=== PATIENT | male | born 1995 | race Caucasian/White ===

== ENCOUNTER 2020-11-15 17:46 | Emergency (ER) | payer BC, SELFPAY ==
--- NOTE | 2020-11-15 17:50 | ED.EAR ---
HPI - Ear Problem General Chief complaint: Ear Stated complaint: ringing in ears/muffled hearing Time Seen by Provider: 11/15/20 17:50 Source: patient and RN notes reviewed Mode of arrival: ambulatory Limitations: no limitations History of Present Illness HPI Narrative: 25-year-old male presents with concern for decreased hearing, intermittent ear ringing. Reports he thinks he has excess wax, he has been using Q-tips and alcohol without relief. He denies discharge from the ear. Denies rhinorrhea, nasal congestion, cold symptoms. MD Complaint: decreased hearing Related Data Allergies Allergy/AdvReac Type Severity Reaction Status Date / Time No Known Allergies Allergy Verified 11/15/20 17:53 Review of Systems Review of Systems: Narrative: CONSTITUTIONAL: Denies malaise, chills, sweats, or fever. EYES: Denies visual changes, redness, or discharge. ENT: Denies rhinorrhea, congestion, sinus pain, otalgia and sore throat. Reports decreased hearing, intermittent ringing in the ear bilaterally CARDIOVASCULAR: Denies chest pain, palpitations, or edema. RESPIRATORY: Denies cough or dyspnea. GASTROINTESTINAL: Denies abdominal pain, nausea, vomiting, diarrhea SKIN: Denies rash or itching. MUSCULOSKELETAL: Denies myalgia. NEUROLOGIC: Denies headache. All systems reviewed & are unremarkable except as noted in HPI and below PMFSH Comments At time of signature, agree with nursing past medical, surgical, social and family history. There is no relevant family history pertinent to the presenting complaint Exam Narrative: Exam Narrative: GENERAL: Well-appearing, well-nourished, and in no acute distress. HEAD: Normocephalic EYES: PERRLA, conjunctivae clear ENT: Nares clear. Mucous membranes moist. TM not visible due to cerumen impaction bilaterally; no tragal tenderness. NECK: Supple. CHEST: No respiratory distress, speaks in full sentences. HEART: Regular rate and rhythm. No murmur heard. SKIN: Warm, dry, no rash. NEURO: Alert and oriented x3. PSYCH: Normal mood and affect Course Course Emergency Course: Patient is aware of diagnosis, understands and agrees to treatment plan. Anticipatory guidance given. Patient agrees to follow-up as directed and is aware of reasons to seek care at the emergency department. Portions of this record may have been created with voice recognition software Vital Signs Vital signs: Vital Signs Temperature 97.7 F 04/07/21 17:57 Pulse Rate 58 L 11/15/20 17:57 Respiratory Rate 16 11/15/20 17:57 Blood Pressure 151/88 H 11/15/20 17:57 Pulse Oximetry 100 11/15/20 17:57 Temperature 97.7 F 11/15/20 17:57 Pulse Rate 58 L 11/15/20 17:57 Respiratory Rate 16 11/15/20 17:57 Blood Pressure 151/88 H 11/15/20 17:57 Pulse Oximetry 100 11/15/20 17:57 Reviewed. Pt has been instructed to follow up with his primary care provider within the next week regarding his elevated blood pressure today. Procedures Ear Wax Removal Both Ears: Ear Wax Removal Date: 11/15/20 Ear Wax Removal Time: 17:58 Results: Re-examined: some cerumen remains Ear Canal Exam: bleeding Noted (Small amount of right auditory canal bleeding) Patient Tolerated Procedure: well Technique: ear canal curetted Additional Comments: Cerumen remains impacted in both ears, Debrox prescribed, with ENT follow-up Medical Decision Making MDM Narrative Medical decision making narrative: Exam findings show no acute concerns or changes; patient is non-toxic appearing and is in no distress. Patient is appropriate for outpatient treatment and follow-up. Vital Signs Vital Signs: Vital Signs Temperature 97.7 F 11/15/20 17:57 Pulse Rate 58 L 11/15/20 17:57 Respiratory Rate 16 11/15/20 17:57 Blood Pressure 151/88 H 11/15/20 17:57 Pulse Oximetry 100 11/15/20 17:57 Temperature 97.7 F 11/15/20 17:57 Pulse Rate 58 L 11/15/20 17:57 Respiratory Rate 16 11/15/20 17:57 Blood
[2020-11-15 17:57] VITALS: BP 151/88; PULSE 58; RESP 16; TEMP 36.5; O2SAT 100
== END 2020-11-15 18:12 | disposition home or self-care (01) ==
PROVIDERS: Emergency Provider Nurse Practitioner; PCP Family Medicine
DX: H61.23 Impacted cerumen, bilateral (principal)
CPT/HCPCS: 69210; 99203; G0463